=== PATIENT | male | born 1960 | race Caucasian/White ===

== ENCOUNTER 2022-07-15 12:23 | Day surgery (SDC) | payer OTHER ==
[~2022-07-15] VITALS: Ht 182.9 cm; Wt 99.2 kg
[~2022-07-15 12:23] MED LIST: ALBU90OI INH; Budeprion Xl300 MG PO; DIAZ5 PO; IBUP200 PO; LORA.5 PO
== END 2022-07-15 15:13 | disposition home or self-care (01) ==
LOC: ORSCSDS 12:23
PROVIDERS: Student in an Organized Health Care Education/Training Program
PROC: 0DBN8ZX Excision of Sigmoid Colon, Via Natural or Artificial Opening Endoscopic, Diagnostic (ICD-10-PCS; principal; 2022-07-15 13:45)
PROC: 0DBK8ZX Excision of Ascending Colon, Via Natural or Artificial Opening Endoscopic, Diagnostic (ICD-10-PCS; principal; 2022-07-15 13:45)
PROC: 0DBP8ZX Excision of Rectum, Via Natural or Artificial Opening Endoscopic, Diagnostic (ICD-10-PCS; principal; 2022-07-15 13:45)
DX: Z12.11 Encounter for screening for malignant neoplasm of colon (principal); Z86.010 Personal history of colon polyps; D12.2 Benign neoplasm of ascending colon; D12.8 Benign neoplasm of rectum; K63.5 Polyp of colon; K62.1 Rectal polyp; K57.30 Diverticulosis of large intestine without perforation or abscess without bleeding; K64.8 Other hemorrhoids; Z87.891 Personal history of nicotine dependence
CPT/HCPCS: 88305; J2250; J2704; J7120

== ENCOUNTER 2025-08-04 08:01 | Day surgery (SDC) | payer OTHER ==
[~2025-08-04] VITALS: Ht 182.9 cm; Wt 108.2 kg
[2025-08-04] MEDS ORDERED: LOSARTAN POTAS100 M1 (09:10)
[2025-08-04] MEDS ORDERED: Midazolam HCL 1 MG/ML 5MLVIAL ONE (10:19)
[2025-08-04 12:10] VITALS: BP 124/73
== END 2025-08-04 11:30 | disposition home or self-care (01) ==
LOC: ORSCSDS 08:01
PROVIDERS: Specialist
PROC: 0DBK8ZX Excision of Ascending Colon, Via Natural or Artificial Opening Endoscopic, Diagnostic (ICD-10-PCS; principal; 2025-08-04 10:00)
DX: Z12.11 Encounter for screening for malignant neoplasm of colon (principal); D12.2 Benign neoplasm of ascending colon; K57.30 Diverticulosis of large intestine without perforation or abscess without bleeding; K64.8 Other hemorrhoids; Z86.0101 Personal history of adenomatous and serrated colon polyps; I10 Essential (primary) hypertension; E78.5 Hyperlipidemia, unspecified; J45.909 Unspecified asthma, uncomplicated; Z79.899 Other long term (current) drug therapy; F17.290 Nicotine dependence, other tobacco product, uncomplicated
CPT/HCPCS: 88305; J2250; J2704; J7120